=== PATIENT | male | born 1940 | race Caucasian/White ===

== ENCOUNTER → 2021-01-24 | Outpatient (CLI) | payer OTHER | LOC: M.MRI 14:30 | PROVIDERS: ATTEND Psychiatry & Neurology Neuromuscular Medicine | DX: I67.82 Cerebral ischemia (principal); F03.90 Unspecified dementia, unspecified severity, without behavioral disturbance, psychotic disturbance, mood disturbance, and anxiety; Z86.61 Personal history of infections of the central nervous system; Z86.69 Personal history of other diseases of the nervous system and sense organs ==

== ENCOUNTER → 2021-02-15 | Outpatient (CLI) | payer OTHER | LOC: M.LAB 13:12 | PROVIDERS: ATTEND Psychiatry & Neurology Neuromuscular Medicine | DX: F03.90 Unspecified dementia, unspecified severity, without behavioral disturbance, psychotic disturbance, mood disturbance, and anxiety (principal); Z86.69 Personal history of other diseases of the nervous system and sense organs; Z86.61 Personal history of infections of the central nervous system ==